=== PATIENT | male | born 2005 ===

== ENCOUNTER 2024-04-01 14:59 | Emergency (ER) | payer MEDICAID ==
[~2024-04-01] VITALS: Ht 190.5 cm; Wt 104.5 kg
[2024-04-01 15:19] VITALS: TEMP 98.7
[2024-04-01] MEDS: LIDOCAINE 1% 10 ML VIAL SQ ONE (16:31)
[2024-04-01] MEDS: PERTUSS(ACELL),DIPH,TET/PF 0.5 ML SYRINGE [ADULT] IM. ONE (16:31)
[2024-04-01 17:45] VITALS: BP 114/69; PULSE 71; RESP 16; O2SAT 99
== END 2024-04-01 17:53 | disposition home or self-care (01) ==
LOC: EMS 14:59
DX: S61.412A Laceration without foreign body of left hand, initial encounter (principal); W26.8XXA Contact with other sharp object(s), not elsewhere classified, initial encounter; Y93.89 Activity, other specified; Y92.89 Other specified places as the place of occurrence of the external cause; Y99.8 Other external cause status
CPT/HCPCS: 99283; 90715; 90471; 12002; J3490